=== PATIENT | female | born 1970 | race Caucasian/White ===

== ENCOUNTER 2016-11-30 12:41 | Emergency (ER) | payer OTHER ==
[~2016-11-30 12:41] MED LIST: ALDACTONE25 MG PO; CEFUROXIME AXE250 MG PO; CYCLOBENZAPRINE10 MG PO; GABAPENTIN800 MG PO; IBUPROFEN600 MG PO; LASIX40 MG PO; LISINOPRIL10 MG PO; OXYCODONE/ACETA1 TA1 PO; PAMELOR50 MG PO; PAMELOR75 MG PO; PERCOCET1 TA1 PO; PRILOSEC40 MG PO; SANTYL250 MG/GM TOP; SERTRALINE HCL100 MG PO
--- NOTE | 2016-11-30 14:47 | DIAGNOSTIC IMAGING REPORT ---
PROCEDURE: US VENOUS - LEFT EXT INDICATION: SWELLING TECHNIQUE: Color Doppler duplex imaging of the deep and superficial venous system without and with compression. COMPARISON: Compared to venous ultrasound left lower extremity on 01/28/2016. FINDINGS: Study is partially limited due to body habitus (calf vessels difficult to evaluate). Deep and superficial venous system of the left lower extremity is within normal limits. There is no evidence of deep vein thrombosis or superficial thrombophlebitis. IMPRESSION: 1. Partially limited study due to body habitus. 2. Negative venous ultrasound of the left lower extremity.
--- NOTE | 2016-11-30 17:26 | ED CLINICAL REPORT ---
Clinical Report - Physicians/Mid Levels [facility] [address] [place] [address] 11/30/2016 12:42 Patient: LIZA MARIA Time Seen: 1302; upon arrival, initial patient contact, initial documentation, patient care assumed. Arrived- By private vehicle. Historian- patient. HISTORY OF PRESENT ILLNESS Chief Complaint: LOWER EXTREMITY PAIN and SWELLING. Not relieved by anything- worsened by standing, walking and not relieved by anything. Severity is described as being moderate. The quality is noted to be "pain". No radiation. This started yesterday and is still present. It was abrupt in onset and has been constant. Symptoms located in the area of the left leg. The patient has had mild redness. No red streaking. She has had new onset of localized mild swelling of the left lower leg. She has had moderate difficulty walking. It has been associated with pain in the left leg. No bladder dysfunction, bowel dysfunction, sensory loss or motor loss. Patient denies an injury. Similar symptoms previously: Worse. ( had cellulitis in that leg before and has scar from infection). Recent medical care: Not recently seen/assessed. REVIEW OF SYSTEMS The patient has had mild difficulty breathing on exertion. She has had fever of 103 F. All systems otherwise negative, except as recorded above. PAST HISTORY See nurses notes. ( PROBLEMS: Cellulitis. Obesity. Sleep Apnea. Asthma. Hypertension. MRSA Infection. --13:06 Dianne Muhammad, R.N. ADDITIONAL SURGERIES: Carpal Tunnel Surgery. Knee Surgery. Nose. Shoulder Surgery. Wrist. --13:06 Dianne Muhammad, R.N.). SOCIAL HISTORY Former smoker. Occasional alcohol use. History of occasional drug use: marijuana. No recent travel. Is a local resident. FAMILY HISTORY Negative. ADDITIONAL NOTES The nursing notes have been reviewed with agreement regarding the chief complaint, HPI, ROS, PMH and patient medications and allergies. PHYSICAL EXAM Vital Signs: 11/30/2016 13:02 BP: 90/37. HR: 83. RR: 22. O2 saturation: 97%. Temp: 98.2 F. Pain level now: 7/10. Have been reviewed as abnormal and appear to be correct. Hypotensive. Heart rate normal. Respiratory rate normal. Temperature normal. Oxygen saturation normal. Appearance: Alert. Oriented X3. No acute distress. Eyes: Pupils equal, round and reactive to light. Eyes normal inspection. Neck: Normal inspection. Neck supple. CVS: Normal heart rate and rhythm. Heart sounds normal. Respiratory: No respiratory distress. Breath sounds normal. Abdomen: (morbid obese). Skin: Skin intact. Skin warm and dry. Normal skin color. Normal skin turgor. Extremities: Left leg: mild erythema, tenderness and swelling located in the anterior, posterior, medial and lateral aspect of lower leg. Neurovascular intact distally. (erythema, warm area to L lower leg, with some oozing clear fluid on lateral side near scar). No laceration, abrasion, ecchymosis, puncture wound or foreign body. No deformity. No limitation of weight bearing. Lower extremities do not exhibit normal ROM. Lower extremity edema present. Extremities otherwise negative. Gait: Gait not tested due to pain. Neuro: Oriented X 3. No motor deficit. No sensory deficit. LABS, X-RAYS, AND EKG Lower Extremity Sonography: Negative exam. Negative study. verbal report from [employer] no dvt. Interpretation time: 1400. Laboratory Tests: CBC w Diff: (JEFRY: 11/30/2016 13:45) ( MsgRcvd 11/30/2016 14:05) Final results Test Result Flag Units (Reference) WHITE BLOOD COUNT 11.4 K/uL (4.5-11.5) RED BLOOD COUNT 3.52 L M/uL (4.00-5.20) HEMOGLOBIN 9.6 L gm/dL (12.0-16.0) HEMATOCRIT 28.4 L % (36.0-46.0) MEAN CELL VOLUME 81 fL (80-100) MEAN CORPUSCULAR HGB 27 pg (26-34) MEAN CORPUSCULAR HGB CONC 34 g/dL (31-37) RED CELL DISTRIBUTION WIDTH 17.3 H % (11.6-14.8) PLATELET COUNT 97 L K/uL (150-400) NEUTROPHIL % 81.4 H % (50-75) LYMPH % 10.4 L % (25-40) MONO % 7.0 % (3-14) EOSINOPHIL % 1.1 % (0-4) BASOPHIL % 0.1 % (0-2) [id number]: (JEFRY: 11/30/2016 13:45) ( MsgRcvd 11/30/2016 14:22) Final results Test Result Flag Units (Reference) D-DIMER QUANTITATIVE 0.88 H ug/mLFEU (0.27-0.52) The primary value of this quantitative assay relates toits negative predictive value (i.e. exclusion) of pulmonaryembolism/deep vein thrombosis/DIC.Elevated levels of d-dimer may also occur with:, age, cancer, inflammation, liver disease,post-op, infection, hematoma, coronary disease, peripheralarteriopathy, bleeding disorders and thrombolytic treatment.Results should be correlated with other clinical andradiological data.Testing Methodology: Latex Immunoassay CMP: (JEFRY: 11/30/2016 13:45) ( MsgRcvd 11/30/2016 14:17) Final results Test Result Flag Units (Reference) GLUCOSE 133 H mg/dL (70-110) BUN 20 H mg/dL (7-18) CREATININE 1.8 H mg/dL (0.6-1.3) Estimated GFR 32.34 mL/min Estimated GFR- 39.19 mL/min Note: Persistent reduction over 3 months in eGFR<60 mL/min/1.73 m2 defines CKD. Patients with eGFR values>=60 mL/min/1.73 m2 may also have CKD if evidence ofpersistent proteinuria. Additional information may be foundat [email or web address].org. SODIUM 133 L mmol/L (136-145) POTASSIUM 3.4 L mmol/L (3.5-5.1) CHLORIDE 99 mmol/L (98-107) CARBON DIOXIDE 23 mmol/L (21-32) CALCIUM 8.4 L mg/dL (8.5-10.1) TOTAL PROTEIN 6.2 L g/dL (6.4-8.2) ALBUMIN 2.8 L g/dL (3.3-5.0) BILIRUBIN, TOTAL 0.9 mg/dL (0.0-1.0) ALKALINE PHOSPHATASE 106 U/L (46-116) AST (SGOT) 35 U/L (15-37) ALT (SGPT) 32 U/L (12-78) . PROGRESS AND PROCEDURES Course of Care: 1400. us results discussed, bp 65/28, pt talking, nad, resp even and unlabored, and stated it was normal when she was sick for her bp to drop and it tends to run low, has been trying to get it up to 100/60, and sometimes it reaches that but not most days 15:12 11/30/16. discussing bp issue with carmen Billingsley, pressure came up 110/?, then pt sat up and it dropped to 70/? 1600. walking in to discuss results and tx plan, pt laying down again, encouraged to sit and stay up and explained we were trying to assess her bp sitting and standing to make sure she doesn't drop too much where we would have to admit her to the hospital overnight, pt denies any bp s/s. 23:58. 11/30/2016 16:04 BP: 94/43. HR: 82. O2 saturation: 97%. Vital Signs: have been reviewed as abnormal and appear to be correct. Hypotensive. Heart rate normal. Respiratory rate normal. Oxygen saturation normal. Patient counseled in person regarding the patient's stable condition, test results and diagnosis. Differential Diagnosis: Other possible considerations: dvt, pe, cellulitis, abscess, pvd. Above considerations are based on history and physical exam. Differential diagnosis was discussed with patient. Disposition: Discharged home in good and improved condition (17:26). Condition: good and stable. CLINICAL IMPRESSION 11/30/2016 17:17 BP: 127/59. HR: 101. O2 saturation: 100%. Vital Signs: have been reviewed as normal and appear to be correct. Cellulitis of the left lower leg. INSTRUCTIONS Warnings: GENERAL WARNINGS: Return or contact your physician immediately if your condition worsens or changes unexpectedly, if not improving as expected, or if other problems arise. Specifically return if problem worsens. Prescription Medications: Cephalexin 500 mg: take 1 capsule orally every 8 hours for 10 days. No refill. Motrin 800 mg tablets: take 1 tablet orally every 8 hours as needed for pain. Dispense thirty (30). No refills. Substitution is permissible. Follow-up: Follow up with your doctor in two days even if well. Call for an appointment. Summary of care provided to patient. Understanding of the discharge instructions verbalized by patient. (Electronically signed by Lamar Lund A.R.N.P. 11/30/2016 23:58)
--- NOTE | 2016-11-30 17:26 | ED NURSING NOTES ---
Clinical Report - Nurses [facility] [address] [place] [address] 11/30/2016 12:42 [id number] Triage time 13:Nov 30 2016. Acuity: LEVEL 4. Chief Complaint: LEFT LOWER EXTREMITY PAIN, SWELLING, REDNESS and NUMBNESS. Location of symptoms- (Yesterday woke up and left leg was hurting, pain, numbness, swelling, and redness). 13:14 11/30/16. SEPSIS SCREEN: Sepsis Screen. Negative (no infection suspected/documented). BRANDO COMA SCORE: [place] Coma Scale: 15- eyes open spontaneously (4); best verbal response- oriented x 4 (5); best motor response- obeys commands (6). --13:14 Dianne Muhammad R.N. 13:02 11/30/16. BP: 90/37 (large adult cuff) taken on the left arm, while sitting. HR: 83 (regular). RR: 22 (regular). O2 saturation: 97% on room air. Temp: 98.2 F (oral). Pain level now: 10. --13:14 Dianne Muhammad R.N. Acuity: LEVEL 3. 13:16 11/30/16. --13:16 Dianne Muhammad R.N. Weight: 199.5 kg stated. Height/Length: 67 inches Per Patient. BMI: 69. --13:07 Dianne Muhammad R.N. Medications Cyclobenzaprine HCl Oral 10 mg, 2x a day. Gabapentin Oral 800mg, 3x a day. Ibuprofen Oral 600 mg, Q6H. Lasix Oral 40 mg, daily. Lisinopril Oral 40 mg, daily. Pamelor Oral 100mg, at bedtime. Percocet Oral 7.5/325 mg, as needed. PriLOSEC Oral 40 mg, 2x a day. Sertraline HCl Oral 100 mg, daily. Spironolactone Oral 25 mg, daily. --13:06 Muhammad, Dianne, R.N. Allergies Statins. Sulfa Antibiotics. --13:06 Dianne Muhammad R.N. History Arrived by private vehicle. Historian: patient. Accompanied by family. Primary physician (Christine Pereira). No injury occurred. This occurred today. She has had swelling, redness, a skin rash and trouble walking. 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 PAST MEDICAL HX: Hypertension. Infections. Last normal menstrual period now. SOCIAL HX: Smoker- current status unknown. Occasional alcohol use; consumes liquor. History of occasional drug use: marijuana. Recently used drugs days ago. No infectious disease exposure. ABUSE ASSESSMENT: No report of abuse. --13:14 Dianne Muhammad R.N. PROBLEMS: Cellulitis. Obesity. Sleep Apnea. Asthma. Hypertension. MRSA Infection. --13:06 Dianne Muhammad R.N. ADDITIONAL SURGERIES: Carpal Tunnel Surgery. Knee Surgery. Nose. Shoulder Surgery. Wrist. --13:06 Dianne Muhammad R.N. Interventions ID band on patient. To treatment room. --13:14 Dianne Muhammad R.N. PHYSICAL ASSESSMENT 13:15 11/30/16. To room via wheelchair. Patient gowned. GENERAL / NEURO / PSYCH: Appears anxious. She has had numbness. EXTREMITIES: Erythema on the extremities. Lower extremity edema. Left leg: tenderness, swelling, erythema and ecchymosis. SKIN: Extremity wound present. Skin is warm. --13:15 Dianne Muhammad R.N. NURSING PROGRESS NOTES 13:16 11/30/16. The plan of care for this patient has been created. Monitoring of patient in place. Patient gowned. Reassurance given. Two patient identifiers checked. Call light placed in reach. Side rails up x 2. Bed placed in lowest position. Brakes of bed on. Patient ready for evaluation- chart flagged and LOTTERIES AGENT notified. --13:16 Dianne Muhammad R.N. 13:23 11/30/2016 Site #1 started via IV in the right hand with an 18g angiocath, with aseptic technique and good blood return; one attempt. Saline lock flushed with 10 mL saline. --13:23 Dianne Muhammad R.N. 13:35 11/30/16. ( Patients blood pressures have been very low, only placed on lower arms with small cuff and BPS have been 75/34, 65/35, and with manual cuff 72/42). --13:35 Dianne Muhammad R.N. 13:40 11/30/2016 Started bag #1 1000 mL IV Fluids IV NS (Saline); at 1000 mL/hr over 1 hour(s) via site #1 via dial-a-flow. Allergies verified and confirmed 5 rights. IV patency established. IV site checked: no pain, redness, or swelling. IV flushed thoroughly pre- and post-medication administration. --13:40 Dianne Muhammad R.N. 13:46 11/30/2016 Toradol IVP 30 mg given over 1 minute(s) via site #1. Allergies verified and confirmed 5 rights. IV patency established. IV site checked: no pain, redness, or swelling. IV flushed thoroughly pre- and post-medication administration. IVP given by RN. --13:46 Dianne Muhammad R.N. 14:49 11/30/2016 Toradol IVP Response: no adverse reaction pain is improving. Symptoms have improved the patient feels better. --14:50 Dianne Muhammad R.N. 14:52 11/30/16. ( patient feeling better from Toradol and BP has increased some). --14:52 Dianne Muhammad R.N. 14:50 11/30/16. BP: 107/64 (small adult cuff) taken on the left arm, while sitting. HR: 83. RR: 20 (regular). O2 saturation: 97% on room air. Pain level now: 5/10. Additional comments: at wrist. --14:52 Dianne Muhammad R.N. 14:56 11/30/2016 IV Fluids IV NS Discontinued: bag #1 completed. Total amount infused: 1000 mL. IV patency established. IV site checked: no pain, redness, or swelling. IV flushed thoroughly. --14:56 Dianne Muhammad R.N. 13:30 11/30/16. BP: 67/28. HR: 96. --15:37 Dianne Muhammad R.N. 14:00 11/30/16. BP: 97/45. HR: 52. O2 saturation: 96%. --15:38 Dianne Muhammad R.N. 14:30 11/30/16. BP: 90/41. HR: 53. O2 saturation: 96%. --15:38 Dianne Muhammad R.N. 15:00 11/30/16. BP: 86/62. HR: 68. O2 saturation: 97%. --15:39 Dianne Muhammad R.N. 16:04 11/30/16. BP: 94/43 (small adult cuff) taken on the left arm, while sitting. HR: 82. O2 saturation: 97% on room air. Additional comments: forearm. --16:05 Dianne Muhammad R.N. 16:32 11/30/2016 Started 1 gm of Ceftriaxone IVPB in bag #1 50 mL; at 100 mL/hr over 30 minute(s) via site #1 via IV pump. Allergies verified and confirmed 5 rights. IV patency established. IV site checked: no pain, redness, or swelling. IV flushed thoroughly pre- and post-medication administration. --16:32 Dianne Muhammad R.N. 16:47 11/30/16. BP: 112/64 (small adult cuff) taken on the right arm, while sitting. HR: 93. O2 saturation: 100% on room air. Additional comments: forearm. --16:47 Dianne Muhammad R.N. 17:05 11/30/2016 Ceftriaxone IVPB Discontinued: bag #2 completed. Total amount infused: 50 mL. IV patency established. IV site checked: no pain, redness, or swelling. IV flushed thoroughly. --17:05 Dianne Muhammad R.N. 17:19 11/30/16. ( Ceftriaxone is completed, patient up to use restroom and feeling good. She feels better sitting in chair). --17:19 Dianne Muhammad R.N. 17:17 11/30/16. BP: 127/59 (small adult cuff) taken on the left arm, while sitting. HR: 101. O2 saturation: 100% on room air. Additional comments: forearm. --17:19 Dianne Muhammad R.N. DISPOSITION / DISCHARGE 17:29 11/30/2016 Site #1 removed upon discharge. Bandaid applied. --17:39 Dianne Muhammad R.N. Departure time: 17:40 Nov 30 2016. Condition at departure: improved. No learning barriers present. Discharge instructions provided and reviewed with the patient. Reviewed medication(s) side effects, precautions and dosing information. Prescription(s) given to the patient. Activity restrictions (minimal use of injured extremity) reviewed. Patient verbalized understanding. Written instructions provided in Eritrean. The patient was discharged by the nurse practitioner. She was discharged home and accompanied by family. She left the Emergency Department ambulatory and via private vehicle. Family member driving. --17:41 Dianne Muhammad R.N. 17:39 11/30/16. BP: 115/99 (small adult cuff) taken on the left arm, while sitting. HR: 94. RR: 22. O2 saturation: 99% on room air. Temp: 98.2 F (oral). Pain level now: 0/10. Additional comments: forearm. --17:41 Dianne Muhammad R.N. Locked/Released at 11/30/2016 17:45 by Dianne Muhammad R.N.
--- NOTE | 2016-11-30 17:26 | ED ORDER SUMMARY ---
..... Patient: LIZA MARIA [facility] VisitID: [id number] [place] [address] 46y, F Registration Date/Time: 11/30/2016 ORDER SHEET Weight: 199.5 kg (stated) Allergies: Statins, Sulfa Antibiotics GENERAL ORDERS: US Venous Left Urgent (13:12 11/30/2016 HBivens A.R.N.P.) (Ack 13:14 KHoerner) (14:52 JSanders R.N.) CBC w Diff Urgent (13:12 11/30/2016 HBivens A.R.N.P.) (Ack 13:14 KHoerner) (13:46 JSanders R.N.) CMP Urgent (13:12 11/30/2016 HBivens A.R.N.P.) (Ack 13:14 KHoerner) (13:46 JSanders R.N.) D-Dimer Urgent (13:12 11/30/2016 HBivens A.R.N.P.) (Ack 13:14 KHoerner) (13:46 JSanders R.N.) MEDICATION ORDERS: IV FLUIDS: Toradol IV 30 mg (NOW) (13:12 11/30/2016 HBivens A.R.N.P.) (13:46 JSanders R.N.) IV Saline Lock (13:12 11/30/2016 HBivens A.R.N.P.) (13:23 JSanders R.N.) IV NS : initial bolus 1000 mL (1000 mL/hr), then none - (NOW) (13:38 11/30/2016 HBivens A.R.N.P.) (13:40 JSanders R.N.) Ceftriaxone IV 1 gm/50mL (NOW) (16:10 11/30/2016 HBivens A.R.N.P.) (16:32 JSanders R.N.) ORDER SHEET NOTES: [Electronically signed by Dianne Muhammad R.N. (17:45 11/30/2016)] [Electronically signed by Lamar LundR.N.PTwin (23:58 11/30/2016)] [Electronically locked/signed by Dianne Muhammad R.N. (17:45 11/30/2016)]
--- NOTE | 2016-11-30 17:26 | ED ORDER SUMMARY ---
..... Patient: LIZA MARIA OrderSheet [facility] VisitID: [id number] [place] [address] 46y, F Registration Date/Time: 11/30/2016 ORDER SHEET Weight: 199.5 kg (stated) Allergies: Statins, Sulfa Antibiotics GENERAL ORDERS: US Venous Left Urgent (13:12 11/30/2016 HBivens A.R.N.P.) (Ack 13:14 KHoerner) (14:52 JSanders R.N.) CBC w Diff Urgent (13:12 11/30/2016 HBivens A.R.N.P.) (Ack 13:14 KHoerner) (13:46 JSanders R.N.) CMP Urgent (13:12 11/30/2016 HBivens A.R.N.P.) (Ack 13:14 KHoerner) (13:46 JSanders R.N.) D-Dimer Urgent (13:12 11/30/2016 HBivens A.R.N.P.) (Ack 13:14 KHoerner) (13:46 JSanders R.N.) MEDICATION ORDERS: IV FLUIDS: Toradol IV 30 mg (NOW) (13:12 11/30/2016 HBivens A.R.N.P.) (13:46 JSanders R.N.) IV Saline Lock (13:12 11/30/2016 HBivens A.R.N.P.) (13:23 JSanders R.N.) IV NS : initial bolus 1000 mL (1000 mL/hr), then none - (NOW) (13:38 11/30/2016 HBivens A.R.N.P.) (13:40 JSanders R.N.) Ceftriaxone IV 1 gm/50mL (NOW) (16:10 11/30/2016 HBivens A.R.N.P.) (16:32 JSanders R.N.) ORDER SHEET NOTES: [Electronically signed by Dianne Muhammad R.N. (17:45 11/30/2016)] [Electronically signed by Lamar LundR.N.PTwin (23:58 11/30/2016)] [Electronically locked/signed by Dianne Muhammad R.N. (17:45 11/30/2016)]
--- NOTE | 2016-11-30 23:58 | ED MAR SUMMARY ---
..... Medication Administration Record [facility] [address] [place] [address] Patient: LIZA MARIA Visit ID: [id number] 46y, F Weight: 199.5 kg Height/Length: 67 in BMI: 69 ALLERGIES: Statins, Sulfa Antibiotics Start 13:40 11/30/2016 Dianne Muhammad R.N., Stop 14:56 11/30/2016 Dianne Muhammad R.N. Medication Administered: IV NS (SALINE), Dose: IV Fluids over 1 hour(s), Rate: 1000 mL/hr, Dispensed: 1000 mL bag, Site: #1 right hand. Medication Ordered: IV NS : initial bolus 1000 mL (1000 mL/hr), then none - (NOW). Given 13:46 11/30/2016 Dianne Muhammad R.N. Medication Administered: TORADOL [IVP], Dose: 30 mg IVP over 1 minute(s), Site: #1 right hand. Medication Ordered: Toradol IV 30 mg (NOW). Start 16:32 11/30/2016 Dianne Muhammad R.N., Stop 17:05 11/30/2016 Dianne Muhammad R.N. Medication Administered: CEFTRIAXONE [IVPB], Dose: 1 gm IVPB over 30 minute(s), Rate: 100 mL/hr, Dispensed: 50 mL bag, Site: #1 right hand. Medication Ordered: Ceftriaxone IV 1 gm/50mL (NOW).
--- NOTE | 2016-11-30 23:58 | ED MED RECONCILIATION SUMMARY ---
Patient: LIZA MARIA Medication Reconciliation Report [facility] VisitID: [id number] [address] [place] [address] 46y, F Registration Date/Time: 11/30/2016 Weight: 199.5 kg Height/Length: 67 in. BMI: 69.0 ALLERGIES: Statins, Sulfa Antibiotics The patient's Home Medications are listed below: THE FOLLOWING MEDICATIONS NEED TO BE RECONCILED: Cyclobenzaprine HCl Oral 10 mg, 2x a day Gabapentin Oral 800mg, 3x a day Ibuprofen Oral 600 mg, Q6H Lasix Oral 40 mg, daily Lisinopril Oral 40 mg, daily Pamelor Oral 100mg, at bedtime Percocet Oral 7.5/325 mg PriLOSEC Oral 40 mg, 2x a day Sertraline HCl Oral 100 mg, daily Spironolactone Oral 25 mg, daily The source(s) of the original Home Medication information: Not obtained. The following Medications were given to the patient in the Emergency Department: IV NS IV Fluids bolus 0, then 1000 mL/hr, administered: 11/30/2016 1:40:00 PM Toradol [IVP] IVP 30 mg, administered: 11/30/2016 1:46:00 PM Ceftriaxone [IVPB] IVPB bolus 0, then 1 gm 100 mL/hr, administered: 11/30/2016 4:32:00 PM The following Medications were prescribed to the patient: Cephalexin 500 mg: take 1 capsule orally every 8 hours for 10 days. No refill. -- Lamar Lund A.R.NTwinPTwin Motrin 800 mg tablets: take 1 tablet orally every 8 hours as needed for pain. Dispense thirty (30). No refills. Substitution is permissible. -- Lamar Lund A.R.NTwinPTwin
--- NOTE | 2016-11-30 23:58 | ED DISCHARGE INSTRUCTIONS ---
Patient: LIZA MARIA General Instructions [facility] VisitID: [id number] [place] [address] 46y, F Registration Date/Time: 11/30/2016 11/30/2016 17:17 BP: 127/59. HR: 101. O2 saturation: 100%. Vital Signs: have been reviewed as normal and appear to be correct. Cellulitis of the left lower leg. INSTRUCTIONS Warnings: GENERAL WARNINGS: Return or contact your physician immediately if your condition worsens or changes unexpectedly, if not improving as expected, or if other problems arise. Specifically return if problem worsens. Prescription Medications: Cephalexin 500 mg: take 1 capsule orally every 8 hours for 10 days. No refill. Motrin 800 mg tablets: take 1 tablet orally every 8 hours as needed for pain. Dispense thirty (30). No refills. Substitution is permissible. Follow-up: Follow up with your doctor in two days even if well. Call for an appointment. Summary of care provided to patient. Understanding of the discharge instructions verbalized by patient. ADDITIONAL INFORMATION Cellulitis You have an infection of the skin known as cellulitis. This usually starts with a scrape, cut, insect bite, blister or other opening in the skin which becomes infected. This is a serious condition. It must be watched closely to be sure the infection is not spreading. With antibiotic treatment, the size of the red area will gradually shrink in size until the skin returns to normal. This will take 7-10 days. The red area should never increase in size once the antibiotic medicine has been started. Occasionally, an infection will be resistant to one antibiotic and another one will have to be used. Home Care: 1) Limit the use of the affected part, since excess movement can cause the infection to spread. 2) If the infection is on your leg, walk as little as possible during the first few days of the treatment. Keep your leg elevated while sitting. This will reduce swelling. 3) Take all of the antibiotic medicine exactly as directed until it is gone. Be careful not to miss any doses, especially during the first seven days. Follow Up with your doctor or this facility as directed. Check the infected area daily for the warning signs listed below. Get Prompt Medical Attention if any of the following occur: -- Spreading area of redness -- Increasing swelling or pain -- Appearance of pus or drainage -- Fever over 100.4 F (38.0 C) oral, or over 101.4 F (38.6 C) rectal, after two days on antibiotics Staph Infection (MRSA) "Staph" is the short name for the common bacteria called "staphylococcus aureus". Staph bacteria are often present on the skin without causing an infection. If it gets under the skin an infection occurs. This causes redness, tenderness, swelling and sometimes fluid drainage. MRSA stands for "Methicillin-Resistant Staph Aureus". Unlike a common staph infection, MRSA bacteria are resistant to the usual antibiotics and harder to treat. Also, MRSA is more toxic than common staph bacteria. It can spread quickly throughout the body and cause a life-threatening illness. MRSA is spread to others by direct physical contact with the bacteria. MRSA can also be transmitted from items contaminated by a person who has the bacteria, such as bandages, towels, bed sheets, or sports equipment. It is not spread through the air. Once you have a MRSA skin infection, you are at risk of having it recur in the future. If MRSA infection is suspected, the doctor may take a wound culture to confirm the diagnosis. Any abscess will be drained. One or sometimes two antibiotics that work against MRSA will be prescribed. Home Care: 1) Take any antibiotics prescribed exactly as directed until they are gone. 2) Follow the same washing procedures as outlined for Household Members below. 3) Keep draining wounds covered with clean, dry bandages. Change dressings as they become soiled. 4) You and those in contact with you should wash their hands frequently with soap and warm water or use an alcohol-based hand retail loan originator. Do this after each time you change the bandage or touch the wound. 5) Avoid sharing personal items such as towels, washcloths, razors, clothing, or uniforms. Wash soiled sheets, towels or clothes in hot water with laundry detergent. Use an automatic clothes dryer set on high to kill any remaining bacteria. 6) Remove any artificial nails and nail nicaraguan. 7) If you use a gym, wipe down equipment before and after each use. Treatment Of Household Members If you have been diagnosed with possible MRSA infection, those living with you are at higher risk of carrying the bacteria on their skin or in their nose, even if there is no sign of infection. Bacteria must be removed from the skin of all household members (including you) at the same time, so that it is not passed back and forth. Advise them to remove the bacteria as follows: Wash your whole body (scalp to toes) daily for five days with Hibiclens (chlorhexidine). Scrub fingernails with a brush for one minute twice a day. If any skin infections are present (boils, abscess, infected cut) these must be treated by a doctor. Washing alone will not treat a MRSA infection. Clean counter tops and children's toys; do not share personal items such as toothbrush and razors. It is okay to share glasses, plates, utensils. If antibiotic ointment was prescribed use it as directed. Follow Up with your doctor or as advised by our staff. If a wound culture was taken, call as directed in two days to obtain the results. If the culture result is positive for MRSA, tell medical personnel in the future that you were treated for this type of infection. Get Prompt Medical Attention if any of the following occur: -- Increasing redness, swelling or pain -- Red streaks in the skin around the wound -- Weakness or dizziness -- New appearance of pus or drainage from the wound -- New fever over 100.4 F (38.0 C) Cephalexin Monohydrate Oral tablet What is this medicine? CEPHALEXIN (sef a YARA in) is a cephalosporin antibiotic. It is used to treat certain kinds of bacterial infections It will not work for colds, flu, or other viral infections. How should I use this medicine? Take this medicine by mouth with a full glass of water. Follow the directions on the prescription label. This medicine can be taken with or without food. Take your medicine at regular intervals. Do not take your medicine more often than directed. Take all of your medicine as directed even if you think you are better. Do not skip doses or stop your medicine early. Talk to your hammersmith helper regarding the use of this medicine in children. While this drug may be prescribed for selected conditions, precautions do apply. What side effects may I notice from receiving this medicine? Side effects that you should report to your doctor or health women's health care nurse practitioner as soon as possible: allergic reactions like skin rash, itching or hives, swelling of the face, lips, or tongue breathing problems pain or trouble passing urine redness, blistering, peeling or loosening of the skin, including inside the mouth severe or watery diarrhea unusually weak or tired yellowing of the eyes, skin Side effects that usually do not require medical attention (report to your doctor or health women's health care nurse practitioner if they continue or are bothersome): gas or heartburn genital or anal irritation headache joint or muscle pain nausea, vomiting What may interact with this medicine? probenecid some other antibiotics What if I miss a dose? If you miss a dose, take it as soon as you can. If it is almost time for your next dose, take only that dose. Do not take double or extra doses. There should be at least 4 to 6 hours between doses. Where should I keep my medicine? Keep out of the reach of children. Store at room temperature between 59 and 86 degrees F (15 and 30 degrees C). Throw away any unused medicine after the expiration date. What should I tell my health care provider before I take this medicine? They need to know if you have any of these conditions: kidney disease stomach or intestine problems, especially colitis an unusual or allergic reaction to cephalexin, other cephalosporins, penicillins, other antibiotics, medicines, foods, dyes or preservatives or trying to get breast-feeding What should I watch for while using this medicine? Tell your doctor or health women's health care nurse practitioner if your symptoms do not begin to improve in a few days. Do not treat diarrhea with over the counter products. Contact your doctor if you have diarrhea that lasts more than 2 days or if it is severe and watery. If you have diabetes, you may get a false-positive result for sugar in your urine. Check with your doctor or health women's health care nurse practitioner. Ibuprofen Oral tablet What is this medicine? IBUPROFEN (eye BYOO proe fen) is a non-steroidal anti-inflammatory drug (NSAID). It is used for dental pain, fever, headaches or migraines, osteoarthritis, rheumatoid arthritis, or painful monthly periods. It can also relieve minor aches and pains caused by a cold, flu, or sore throat. How should I use this medicine? Take this medicine by mouth with a glass of water. Follow the directions on the prescription label. Take this medicine with food if your stomach gets upset. Try to not lie down for at least 10 minutes after you take the medicine. Take your medicine at regular intervals. Do not take your medicine more often than directed. A special MedGuide will be given to you by the pharmacist with each prescription and refill. Be sure to read this information carefully each time. Talk to your hammersmith helper regarding the use of this medicine in children. Special care may be needed. What side effects may I notice from receiving this medicine? Side effects that you should report to your doctor or health women's health care nurse practitioner as soon as possible: allergic reactions like skin rash, itching or hives, swelling of the face, lips, or tongue black or bloody stools, blood in the urine or in vomit breathing problems changes in vision chest pain general ill feeling or flu-like symptoms nausea or vomiting redness, blistering, peeling or loosening of the skin, including inside the mouth slurred speech or weakness on one side of the body stomach pain unexplained weight gain or swelling unusually weak or tired yellowing of eyes or skin Side effects that usually do not require medical attention (report to your doctor or health women's health care nurse practitioner if they continue or are bothersome): constipation or diarrhea dizziness gas or heartburn stomach upset What may interact with this medicine? Do not take this medicine with any of the following medications: cidofovir ketorolac methotrexate pemetrexed This medicine may also interact with the following medications: alcohol aspirin diuretics lithium other drugs for inflammation like prednisone warfarin What if I miss a dose? If you miss a dose, take it as soon as you can. If it is almost time for your next dose, take only that dose. Do not take double or extra doses. Where should I keep my medicine? Keep out of the reach of children. Store at room temperature between 15 and 30 degrees C (59 and 86 degrees F). Keep container tightly closed. Throw away any unused medicine after the expiration date. What should I tell my health care provider before I take this medicine? They need to know if you have any of these conditions: asthma cigarette smoker drink more than 3 alcohol containing drinks a day heart disease or circulation problems such as heart failure or leg edema (fluid retention) high blood pressure kidney disease liver disease stomach bleeding or ulcers an unusual or allergic reaction to ibuprofen, aspirin, other NSAIDS, other medicines, foods, dyes, or preservatives or trying to get breast-feeding What should I watch for while using this medicine? Tell your doctor or healthcare professional if your symptoms do not start to get better or if they get worse. This medicine does not prevent heart attack or stroke. In fact, this medicine may increase the chance of a heart attack or stroke. The chance may increase with longer use of this medicine and in people who have heart disease. If you take aspirin to prevent heart attack or stroke, talk with your doctor or health women's health care nurse practitioner. Do not take other medicines that contain aspirin, ibuprofen, or naproxen with this medicine. Side effects such as stomach upset, nausea, or ulcers may be more likely to occur. Many medicines available without a prescription should not be taken with this medicine. This medicine can cause ulcers and bleeding in the stomach and intestines at any time during treatment. Ulcers and bleeding can happen without warning symptoms and can cause . To reduce your risk, do not smoke cigarettes or drink alcohol while you are taking this medicine. You may get drowsy or dizzy. Do not drive, use machinery, or do anything that needs mental alertness until you know how this medicine affects you. Do not stand or sit up quickly, especially if you are an older patient. This reduces the risk of dizzy or fainting spells. This medicine can cause you to bleed more easily. Try to avoid damage to your teeth and gums when you brush or floss your teeth. You have been given the following additional information: Cellulitis MRSA Skin Infection, Suspected Or Confirmed Cephalexin Monohydrate Oral tablet Ibuprofen Oral tablet (Electronically signed by Lamar Lund A.R.N.P. 11/30/2016 23:58)
--- NOTE | 2016-11-30 23:58 | ED MAR SUMMARY ---
..... Medication Administration Record Merged With [facility] [address] [place] [address] Patient: LIZA MARIA Visit ID: [id number] 46y, F Weight: 199.5 kg Height/Length: 67 in BMI: 69 ALLERGIES: Statins, Sulfa Antibiotics Start 13:40 11/30/2016 Dianne Muhammad R.N., Stop 14:56 11/30/2016 Dianne Muhammad R.N. Medication Administered: IV NS (SALINE), Dose: IV Fluids over 1 hour(s), Rate: 1000 mL/hr, Dispensed: 1000 mL bag, Site: #1 right hand. Medication Ordered: IV NS : initial bolus 1000 mL (1000 mL/hr), then none - (NOW). Given 13:46 11/30/2016 Dianne Muhammad R.N. Medication Administered: TORADOL [IVP], Dose: 30 mg IVP over 1 minute(s), Site: #1 right hand. Medication Ordered: Toradol IV 30 mg (NOW). Start 16:32 11/30/2016 Dianne Muhammad R.N., Stop 17:05 11/30/2016 Dianne Muhammad R.N. Medication Administered: CEFTRIAXONE [IVPB], Dose: 1 gm IVPB over 30 minute(s), Rate: 100 mL/hr, Dispensed: 50 mL bag, Site: #1 right hand. Medication Ordered: Ceftriaxone IV 1 gm/50mL (NOW).
--- NOTE | 2016-11-30 23:58 | ED MED RECONCILIATION SUMMARY ---
Patient: LIZA MARIA Medication Reconciliation Report [facility] VisitID: [id number] [address] [place] [address] 46y, F Registration Date/Time: 11/30/2016 Weight: 199.5 kg Height/Length: 67 in. BMI: 69.0 ALLERGIES: Statins, Sulfa Antibiotics The patient's Home Medications are listed below: THE FOLLOWING MEDICATIONS NEED TO BE RECONCILED: Cyclobenzaprine HCl Oral 10 mg, 2x a day Gabapentin Oral 800mg, 3x a day Ibuprofen Oral 600 mg, Q6H Lasix Oral 40 mg, daily Lisinopril Oral 40 mg, daily Pamelor Oral 100mg, at bedtime Percocet Oral 7.5/325 mg PriLOSEC Oral 40 mg, 2x a day Sertraline HCl Oral 100 mg, daily Spironolactone Oral 25 mg, daily The source(s) of the original Home Medication information: Not obtained. The following Medications were given to the patient in the Emergency Department: IV NS IV Fluids bolus 0, then 1000 mL/hr, administered: 11/30/2016 1:40:00 PM Toradol [IVP] IVP 30 mg, administered: 11/30/2016 1:46:00 PM Ceftriaxone [IVPB] IVPB bolus 0, then 1 gm 100 mL/hr, administered: 11/30/2016 4:32:00 PM The following Medications were prescribed to the patient: Cephalexin 500 mg: take 1 capsule orally every 8 hours for 10 days. No refill. -- Lamar Lund A.R.NTwinPTwin Motrin 800 mg tablets: take 1 tablet orally every 8 hours as needed for pain. Dispense thirty (30). No refills. Substitution is permissible. -- Lamar Lund A.R.NTwinPTwin
== END 2016-11-30 17:40 | disposition home or self-care (01) ==
LOC: ED SRH 12:41
DX: L03.116 Cellulitis of left lower limb (principal); I10 Essential (primary) hypertension; Z87.891 Personal history of nicotine dependence; Z79.899 Other long term (current) drug therapy; Z88.2 Allergy status to sulfonamides; Z88.8 Allergy status to other drugs, medicaments and biological substances

== ENCOUNTER 2017-01-05 13:44 | Outpatient (CLI) | payer OTHER ==
--- NOTE | 2017-01-05 15:38 | DIAGNOSTIC IMAGING REPORT ---
PROCEDURE: US ART LOWER EXT WITH MADELYN-B/L INDICATION: NON HEALING WOUNDS TECHNIQUE: Preexercise ABIs were performed. The patient was unable to exercise due to obesity and limited mobility. Color Doppler duplex imaging of the lower extremities was obtained. COMPARISON: None. FINDINGS: RIGHT LOWER EXTREMITY: ABIs: Resting ABIs: Posterior tibial and dorsalis pedis both 1.2. VESSELS: Minimal plaque formation. Normal triphasic wave form throughout the extremity except for biphasic wave form of the dorsalis pedis artery. RIGHT LOWER EXTREMITY PEAK SYSTOLIC VELOCITIES: External iliac: 186 cm/second. Common femoral artery: 139 cm/second. Profunda femoral artery: 80 cm/second. Proximal superficial femoral artery: 96 cm/second. Mid superficial femoral artery: 97 cm/second. Distal superficial femoral artery: 74 cm/second. Popliteal artery: 82 cm/second. Proximal posterior tibial artery: 61 cm/second. Proximal anterior tibial artery: 91 cm/second. Distal posterior tibial artery: 71 cm/second. Dorsalis pedis artery: 66 cm/second. LEFT LOWER EXTREMITY: ABIs: Resting ABIs: Posterior tibial 1.3 and dorsalis pedis 1.2. VESSELS: Minimal plaque formation. Monophasic wave form of the external iliac artery with triphasic wave form distally to the ankle. LEFT LOWER EXTREMITY PEAK SYSTOLIC VELOCITIES: External iliac: 232 cm/second. Common femoral artery: 134 cm/second. Profunda femoral artery: 120 cm/second. Proximal superficial femoral artery: 123 cm/second. Mid superficial femoral artery: 81 cm/second. Distal superficial femoral artery: 120 cm/second. Popliteal artery: 102 cm/second. Proximal posterior tibial artery: 78 cm/second. Proximal anterior tibial artery: 82 cm/second. Distal posterior tibial artery: 73 cm/second. Dorsalis pedis artery: 97 cm/second. IMPRESSION: 1. Left lower extremity: No evidence of resting arterial insufficiency. External iliac artery monophasic wave form with elevated velocity suggestive of inflow disease. Otherwise minimal plaque formation. 2. Right lower extremity: No evidence of resting arterial insufficiency . Minimal plaque formation with no evidence of high-grade stenosis.
== END 2017-01-05 23:00 ==
LOC: US SRH 13:44
DX: L97.929 Non-pressure chronic ulcer of unspecified part of left lower leg with unspecified severity (principal); L97.919 Non-pressure chronic ulcer of unspecified part of right lower leg with unspecified severity

== ENCOUNTER 2017-01-09 22:21 | Emergency (ER) | payer OTHER ==
--- NOTE | 2017-01-09 23:52 | ED NURSING NOTES ---
Clinical Report - Nurses [facility] [address] [place] [address] 01/09/2017 22:21 [id number] Triage time 22:30. Chief Complaint: LEFT LOWER EXTREMITY PAIN, SWELLING and REDNESS. Location of symptoms- (outer calf wound). --22:37 Deya Ann R.N. 22:30 01/09/17. BP: 106/39 (large adult cuff) taken on the left arm, while lying. HR: 89 (regular and normal rate). RR: 20 (regular and unlabored). O2 saturation: 100% on room air. Temp: 97.8 F (oral). Pain level now: 03/23. --22:37 Deya Ann R.N. Weight: 185.9 kg stated. Height/Length: 67 inches Per Patient. BMI: 64.2. --22:36 Deya Ann R.N. Medications Cyclobenzaprine HCl Oral 10 mg, 2x a day. Gabapentin Oral 800mg, 3x a day. Lasix Oral 40 mg, daily. Lisinopril Oral 40 mg, daily. Pamelor Oral 100mg, at bedtime. Percocet Oral 7.5/325 mg, as needed. PriLOSEC Oral 40 mg, 2x a day. Sertraline HCl Oral 100 mg, daily. Spironolactone Oral 25 mg, daily. --22:32 Deya Ann R.N. Clindamycin HCl Oral (Capsule 300 mg) 1 capsule, 3x a day. --22:32 Deya Ann R.N. Allergies Statins. --22:32 Deya Ann R.N. History Arrived by private vehicle. Historian: patient. Accompanied by family. Primary physician (chon). This occurred (ongoing,). She has had swelling to left lower leg since initial complaint. She has had redness. PAST MEDICAL HX: Tetanus status: up-to-date. Last normal menstrual period was 3 weeks ago. SOCIAL HX: Smoker- current status unknown. Occasional alcohol use. History of drug use: marijuana. (3 months ago). SELF HARM ASSESSMENT: A self harm assessment was performed. The patient answered "no" to the question "Have you recently felt down, depressed, or hopeless?", "Have you noticed less interest or pleasure in doing things?", "Do you have thoughts of harming or killing yourself?", "Are you here because you tried to hurt yourself?", "Have you ever tried to hurt yourself before today?", "Have you recently had thoughts about harming or killing others?" and "Do you have any dangerous items in your possession?". --22:37 Deya Ann R.N. PROBLEMS: Fibromyalgia [Active]. --22:33 Deya Ann R.N. Infections. Cellulitis. Obesity. Sleep Apnea. Asthma. Hypertension. MRSA Infection. --22:33 Deya Ann R.N. ADDITIONAL SURGERIES: Carpal Tunnel Surgery. Knee Surgery. Nose. Shoulder Surgery. Wrist. --22:33 Deya Ann R.N. Interventions ID band on patient. --22:37 Deya Ann R.N. PHYSICAL ASSESSMENT To room via wheelchair. GENERAL / NEURO / PSYCH: Oriented X 4. Alert. Appears in no acute distress. EXTREMITIES: Left leg: tenderness and erythema of the lateral aspect of leg (wound since beginning of november). SKIN: Skin breakdown noted on left calf; present on arrival. --22:39 Deya Ann R.N. NURSING PROGRESS NOTES Two patient identifiers checked. Call light placed in reach. Side rails up x 1. Bed placed in lowest position. Brakes of bed on. --22:39 Deya Ann R.N. Patient ready for evaluation- chart flagged. --22:39 Deya Ann R.N. 23:04 01/09/2017 Site #1 started via IV in the left hand with an 22g angiocath, with aseptic technique and good blood return; one attempt. Blood drawn: rainbow set. Labeled in the presence of the patient. Saline lock flushed with 10 mL saline. --23:09 Deya Ann R.N. Two patient identifiers checked. Call light placed in reach. Side rails up x 1. Bed placed in lowest position. Brakes of bed on. --23:09 Deya Ann R.N. DISPOSITION / DISCHARGE 23:55 01/09/2017 Site #1 removed upon discharge. Catheter intact. Manual pressure and bandage applied. --00:06 Deya Ann R.N. Departure time: 2355. Condition at departure: unchanged and stable. No learning barriers present. Discharge instructions provided and reviewed with the patient. Follow up contact number [phone]. Patient verbalized understanding. Written instructions provided in Togolese. The patient was discharged home and accompanied by family. She left the Emergency Department in a wheelchair and via private vehicle. Family member driving. --00:10 Deya Ann R.N. 23:55 01/09/17. BP: 85/35 (regular adult cuff) taken on the left arm, while lying. ED physician notified. HR: 75 (regular, normal rate and strong). RR: 18 (regular, unlabored and normal). O2 saturation: 100% on room air. Temp: deferred. Pain level now: 11/21. --00:10 Deya Ann R.N. Locked/Released at 01/10/2017 0:11 by Deya Ann R.N.
--- NOTE | 2017-01-09 23:52 | ED CLINICAL REPORT ---
Clinical Report - Physicians/Mid Levels [facility] [address], [place] [address] 01/09/2017 22:21 Patient: LIZA MARIA Time Seen: 22:47. Arrived- By private vehicle. Historian- patient. HISTORY OF PRESENT ILLNESS Chief Complaint: ; ;(LLE WOUND IS "WORSE"). The quality is noted to be "pain". This started several days ago; Today the patient was told to come to the ED by her home health wound care nurse because there was a foul odor when the nurse removed the wound vac. The patient noted increased tenderness over the last several days. Symptoms located in the area of the left leg. The patient has had redness and swelling. No difficulty walking. No bladder dysfunction, bowel dysfunction, sensory loss or motor loss. Recent medical care: ( IMPRESSION: 1. Left lower extremity: No evidence of resting arterial insufficiency. External iliac artery monophasic wave form with elevated velocity suggestive of inflow disease. Otherwise minimal plaque formation. 2. Right lower extremity: No evidence of resting arterial insufficiency . Minimal plaque formation with no evidence of high-grade stenosis. Dictated by: OLAF ALCANTARA MD D: YESENIA;01/05/17 1538 <Electronically signed by OLAF ALCANTARA MD in OV>). REVIEW OF SYSTEMS No chills, fever, chest pain or difficulty breathing. PAST HISTORY ( Wound Care Center [facility] Pt has a chronic non healing LLE wound Morbid obesity >400 lbs PROBLEMS: Fibromyalgia [Active]. Infections. Cellulitis. Obesity. Sleep Apnea. Asthma. Hypertension. MRSA Infection. ADDITIONAL SURGERIES: Carpal Tunnel Surgery. Knee Surgery. Nose. Shoulder Surgery. Wrist). SOCIAL HISTORY Former smoker. ADDITIONAL NOTES The nursing notes have been reviewed. PHYSICAL EXAM Vital Signs: 01/09/2017 23:55 BP: 85/35. HR: 75. RR: 18. O2 saturation: 100%. Pain level now: 11/21. 01/09/2017 22:30 BP: 106/39. HR: 89. RR: 20. O2 saturation: 100%. Temp: 97.8 F. Pain level now: 710. Appearance: Alert. No acute distress. Respiratory: Breath sounds normal. Abdomen: Soft and nontender. Extremities: Left leg: moderate erythema, tenderness and swelling and 4.0 cm laceration located in the anterior, posterior, medial and lateral aspect of upper, mid and lower leg. Neurovascular intact distally. No ecchymosis. (There is no palpable abscess, not acute cellulitis. There is a general redness.). Extremities otherwise negative. PROGRESS AND PROCEDURES Course of Care: 23:31 01/09/17. Unable to log into wound center notes. Pt does not appear to have a wound emergency. Pt will need to get into the wound clinic on Thursday (2 days from now) I paged Dr Bailey Sat and Dr Lopez will relay the request for a Thursday appointment when Dr Bailey returns the page. Disposition: Discharged. Condition: stable. CLINICAL IMPRESSION Clinical picture does not suggest cellulitis or abscess. NON-HEALING LEFT LEG WOUND. INSTRUCTIONS (THERE DOES NOT APPEAR TO BE CELLULITIS OR ABSCESS AT THIS TIME. I WILL CALL DR BAILEY IN THE MORNING. CALL THE WOUND CLINIC FOR A THURSDAY APPOINTMENT. IMMEDIATE RECHECK FOR FEVER, MUCH WORSE WOUND OR UNCONTROLLED PAIN.). Understanding of the discharge instructions verbalized by patient and family. Follow-up with: [facility], , , [facility], [address] [place] [address] [address], [place] [address] Follow up Thursday. (Electronically signed by Minh Wilkes MD 01/10/2017 22:34) Addenda for CANDACE LIZA J VisitID: [id number] Date: 01/09/2017 01/10/2017 10:00 21:50. Spoke with Dr. Bailey and he will be happy to have her seen early next week at the Wound Care Clinic. (Electronically signed by Herman Lopez 01/10/2017 10:00)
--- NOTE | 2017-01-09 23:52 | ED NURSING NOTES ---
Clinical Report - Nurses [facility] [address] [place] [address] 01/09/2017 22:21 [id number] Triage time 22:30. Chief Complaint: LEFT LOWER EXTREMITY PAIN, SWELLING and REDNESS. Location of symptoms- (outer calf wound). --22:37 Deya Ann R.N. 22:30 01/09/17. BP: 106/39 (large adult cuff) taken on the left arm, while lying. HR: 89 (regular and normal rate). RR: 20 (regular and unlabored). O2 saturation: 100% on room air. Temp: 97.8 F (oral). Pain level now: 03/23. --22:37 Deya Ann R.N. Weight: 185.9 kg stated. Height/Length: 67 inches Per Patient. BMI: 64.2. --22:36 Deya Ann R.N. Medications Cyclobenzaprine HCl Oral 10 mg, 2x a day. Gabapentin Oral 800mg, 3x a day. Lasix Oral 40 mg, daily. Lisinopril Oral 40 mg, daily. Pamelor Oral 100mg, at bedtime. Percocet Oral 7.5/325 mg, as needed. PriLOSEC Oral 40 mg, 2x a day. Sertraline HCl Oral 100 mg, daily. Spironolactone Oral 25 mg, daily. --22:32 Deya Ann R.N. Clindamycin HCl Oral (Capsule 300 mg) 1 capsule, 3x a day. --22:32 Deya Ann R.N. Allergies Statins. --22:32 Deya Ann R.N. History Arrived by private vehicle. Historian: patient. Accompanied by family. Primary physician (chon). This occurred (ongoing,). She has had swelling to left lower leg since initial complaint. She has had redness. PAST MEDICAL HX: Tetanus status: up-to-date. Last normal menstrual period was 3 weeks ago. SOCIAL HX: Smoker- current status unknown. Occasional alcohol use. History of drug use: marijuana. (3 months ago). SELF HARM ASSESSMENT: A self harm assessment was performed. The patient answered "no" to the question "Have you recently felt down, depressed, or hopeless?", "Have you noticed less interest or pleasure in doing things?", "Do you have thoughts of harming or killing yourself?", "Are you here because you tried to hurt yourself?", "Have you ever tried to hurt yourself before today?", "Have you recently had thoughts about harming or killing others?" and "Do you have any dangerous items in your possession?". --22:37 Deya Ann R.N. PROBLEMS: Fibromyalgia [Active]. --22:33 Deya Ann R.N. Infections. Cellulitis. Obesity. Sleep Apnea. Asthma. Hypertension. MRSA Infection. --22:33 Deya Ann R.N. ADDITIONAL SURGERIES: Carpal Tunnel Surgery. Knee Surgery. Nose. Shoulder Surgery. Wrist. --22:33 Deya Ann R.N. Interventions ID band on patient. --22:37 Deya Ann R.N. PHYSICAL ASSESSMENT To room via wheelchair. GENERAL / NEURO / PSYCH: Oriented X 4. Alert. Appears in no acute distress. EXTREMITIES: Left leg: tenderness and erythema of the lateral aspect of leg (wound since beginning of november). SKIN: Skin breakdown noted on left calf; present on arrival. --22:39 Deya Ann R.N. NURSING PROGRESS NOTES Two patient identifiers checked. Call light placed in reach. Side rails up x 1. Bed placed in lowest position. Brakes of bed on. --22:39 Deya Ann R.N. Patient ready for evaluation- chart flagged. --22:39 Deya Ann R.N. 23:04 01/09/2017 Site #1 started via IV in the left hand with an 22g angiocath, with aseptic technique and good blood return; one attempt. Blood drawn: rainbow set. Labeled in the presence of the patient. Saline lock flushed with 10 mL saline. --23:09 Deya Ann R.N. Two patient identifiers checked. Call light placed in reach. Side rails up x 1. Bed placed in lowest position. Brakes of bed on. --23:09 Deya Ann R.N. DISPOSITION / DISCHARGE 23:55 01/09/2017 Site #1 removed upon discharge. Catheter intact. Manual pressure and bandage applied. --00:06 Deya Ann R.N. Departure time: 2355. Condition at departure: unchanged and stable. No learning barriers present. Discharge instructions provided and reviewed with the patient. Follow up contact number [phone]. Patient verbalized understanding. Written instructions provided in [place]. The patient was discharged home and accompanied by family. She left the Emergency Department in a wheelchair and via private vehicle. Family member driving. --00:10 Deya Ann R.N. 23:55 01/09/17. BP: 85/35 (regular adult cuff) taken on the left arm, while lying. ED physician notified. HR: 75 (regular, normal rate and strong). RR: 18 (regular, unlabored and normal). O2 saturation: 100% on room air. Temp: deferred. Pain level now: 11/21. --00:10 Deya Ann R.N. Locked/Released at 01/10/2017 0:11 by Deya Ann R.N.
--- NOTE | 2017-01-09 23:52 | ED CLINICAL REPORT ---
Clinical Report - Physicians/Mid Levels [facility] [address], [place] [address] 01/09/2017 22:21 Patient: LIZA MARIA Time Seen: 22:47. Arrived- By private vehicle. Historian- patient. HISTORY OF PRESENT ILLNESS Chief Complaint: ; ;(LLE WOUND IS "WORSE"). The quality is noted to be "pain". This started several days ago; Today the patient was told to come to the ED by her home health wound care nurse because there was a foul odor when the nurse removed the wound vac. The patient noted increased tenderness over the last several days. Symptoms located in the area of the left leg. The patient has had redness and swelling. No difficulty walking. No bladder dysfunction, bowel dysfunction, sensory loss or motor loss. Recent medical care: ( IMPRESSION: 1. Left lower extremity: No evidence of resting arterial insufficiency. External iliac artery monophasic wave form with elevated velocity suggestive of inflow disease. Otherwise minimal plaque formation. 2. Right lower extremity: No evidence of resting arterial insufficiency . Minimal plaque formation with no evidence of high-grade stenosis. Dictated by: OLAF ALCANTARA MD D: YESENIA;01/05/17 1538 <Electronically signed by OLAF ALCANTARA MD in OV>). REVIEW OF SYSTEMS No chills, fever, chest pain or difficulty breathing. PAST HISTORY ( Wound Care Center [facility] Pt has a chronic non healing LLE wound Morbid obesity >400 lbs PROBLEMS: Fibromyalgia [Active]. Infections. Cellulitis. Obesity. Sleep Apnea. Asthma. Hypertension. MRSA Infection. ADDITIONAL SURGERIES: Carpal Tunnel Surgery. Knee Surgery. Nose. Shoulder Surgery. Wrist). SOCIAL HISTORY Former smoker. ADDITIONAL NOTES The nursing notes have been reviewed. PHYSICAL EXAM Vital Signs: 01/09/2017 23:55 BP: 85/35. HR: 75. RR: 18. O2 saturation: 100%. Pain level now: 11/21. 01/09/2017 22:30 BP: 106/39. HR: 89. RR: 20. O2 saturation: 100%. Temp: 97.8 F. Pain level now: 710. Appearance: Alert. No acute distress. Respiratory: Breath sounds normal. Abdomen: Soft and nontender. Extremities: Left leg: moderate erythema, tenderness and swelling and 4.0 cm laceration located in the anterior, posterior, medial and lateral aspect of upper, mid and lower leg. Neurovascular intact distally. No ecchymosis. (There is no palpable abscess, not acute cellulitis. There is a general redness.). Extremities otherwise negative. PROGRESS AND PROCEDURES Course of Care: 23:31 01/09/17. Unable to log into wound center notes. Pt does not appear to have a wound emergency. Pt will need to get into the wound clinic on Thursday (2 days from now) I paged Dr Bailey Sat and Dr Lopez will relay the request for a Thursday appointment when Dr Bailey returns the page. Disposition: Discharged. Condition: stable. CLINICAL IMPRESSION Clinical picture does not suggest cellulitis or abscess. NON-HEALING LEFT LEG WOUND. INSTRUCTIONS (THERE DOES NOT APPEAR TO BE CELLULITIS OR ABSCESS AT THIS TIME. I WILL CALL DR BAILEY IN THE MORNING. CALL THE WOUND CLINIC FOR A THURSDAY APPOINTMENT. IMMEDIATE RECHECK FOR FEVER, MUCH WORSE WOUND OR UNCONTROLLED PAIN.). Understanding of the discharge instructions verbalized by patient and family. Follow-up with: [facility], , , [facility], [address] [place] [address] [address], [place] [address] Follow up Thursday. (Electronically signed by Minh Wilkes MD 01/10/2017 22:34) Addenda for CANDACE LIZA J VisitID: [id number] Date: 01/09/2017 01/10/2017 10:00 21:50. Spoke with Dr. Bailey and he will be happy to have her seen early next week at the Wound Care Clinic. (Electronically signed by Herman Lopez 01/10/2017 10:00)
--- NOTE | 2017-01-10 22:34 | ED MED RECONCILIATION SUMMARY ---
Patient: LIZA MARIA Medication Reconciliation Report [facility] VisitID: [id number] [address] [place] [address] 46y, F Registration Date/Time: 01/09/2017 Weight: 185.9 kg Height/Length: 67 in. BMI: 64.2 ALLERGIES: Statins The patient's Home Medications are listed below: THE FOLLOWING MEDICATIONS NEED TO BE RECONCILED: Clindamycin HCl Oral (300 mg) 1 capsule, 3x a day Cyclobenzaprine HCl Oral 10 mg, 2x a day Gabapentin Oral 800mg, 3x a day Lasix Oral 40 mg, daily Lisinopril Oral 40 mg, daily Pamelor Oral 100mg, at bedtime Percocet Oral 7.5/325 mg PriLOSEC Oral 40 mg, 2x a day Sertraline HCl Oral 100 mg, daily Spironolactone Oral 25 mg, daily The source(s) of the original Home Medication information: Not obtained. The following Medications were given to the patient in the Emergency Department: None. The following Medications were prescribed to the patient: None.
--- NOTE | 2017-01-10 22:34 | ED MED RECONCILIATION SUMMARY ---
Patient: LIZA MARIA Medication Reconciliation Report [facility] VisitID: [id number] [address] [place] [address] 46y, F Registration Date/Time: 01/09/2017 Weight: 185.9 kg Height/Length: 67 in. BMI: 64.2 ALLERGIES: Statins The patient's Home Medications are listed below: THE FOLLOWING MEDICATIONS NEED TO BE RECONCILED: Clindamycin HCl Oral (300 mg) 1 capsule, 3x a day Cyclobenzaprine HCl Oral 10 mg, 2x a day Gabapentin Oral 800mg, 3x a day Lasix Oral 40 mg, daily Lisinopril Oral 40 mg, daily Pamelor Oral 100mg, at bedtime Percocet Oral 7.5/325 mg PriLOSEC Oral 40 mg, 2x a day Sertraline HCl Oral 100 mg, daily Spironolactone Oral 25 mg, daily The source(s) of the original Home Medication information: Not obtained. The following Medications were given to the patient in the Emergency Department: None. The following Medications were prescribed to the patient: None.
--- NOTE | 2017-01-10 22:34 | ED MAR SUMMARY ---
..... Medication Administration Record [facility] [address] [place] [id number] Patient: LIZA MARIA Visit ID: [id number] 46y, F Weight: 185.9 kg Height/Length: 67 in BMI: 64.2 ALLERGIES: Statins
--- NOTE | 2017-01-10 22:34 | ED DISCHARGE INSTRUCTIONS ---
Patient: LIZA MARIA General Instructions [facility] VisitID: [id number] [address] [place] [address] 46y, F Registration Date/Time: 01/09/2017 NON-HEALING LEFT LEG WOUND. INSTRUCTIONS (THERE DOES NOT APPEAR TO BE CELLULITIS OR ABSCESS AT THIS TIME. I WILL CALL DR CARIAS IN THE MORNING. CALL THE WOUND CLINIC FOR A THURSDAY APPOINTMENT. IMMEDIATE RECHECK FOR FEVER, MUCH WORSE WOUND OR UNCONTROLLED PAIN.). Understanding of the discharge instructions verbalized by patient and family. Follow-up with: [facility], , , [facility], [address] [place] [address] [address], [place], [address] Follow up Thursday. (Electronically signed by Minh Wilkes MD 01/10/2017 22:34)
--- NOTE | 2017-01-10 22:34 | ED DISCHARGE INSTRUCTIONS ---
Patient: LIZA MARIA General Instructions [facility] VisitID: [id number] [address] [place] [place] [address] 46y, F Registration Date/Time: 01/09/2017 NON-HEALING LEFT LEG WOUND. INSTRUCTIONS (THERE DOES NOT APPEAR TO BE CELLULITIS OR ABSCESS AT THIS TIME. I WILL CALL DR CARIAS IN THE MORNING. CALL THE WOUND CLINIC FOR A THURSDAY APPOINTMENT. IMMEDIATE RECHECK FOR FEVER, MUCH WORSE WOUND OR UNCONTROLLED PAIN.). Understanding of the discharge instructions verbalized by patient and family. Follow-up with: [facility], , , [facility], [address] [place] [address] [address], [place], [address] Follow up Thursday. (Electronically signed by Minh Wilkes MD 01/10/2017 22:34)
--- NOTE | 2017-01-10 22:34 | ED MAR SUMMARY ---
..... Medication Administration Record [facility] [address] [place], [place] [id number] Patient: LIZA MARIA Visit ID: [id number] 46y, F Weight: 185.9 kg Height/Length: 67 in BMI: 64.2 ALLERGIES: Statins
== END 2017-01-09 23:55 | disposition home or self-care (01) ==
LOC: ED SRH 22:21
DX: L97.929 Non-pressure chronic ulcer of unspecified part of left lower leg with unspecified severity (principal); I10 Essential (primary) hypertension; Z79.899 Other long term (current) drug therapy; Z87.891 Personal history of nicotine dependence; Z88.9 Allergy status to unspecified drugs, medicaments and biological substances

== ENCOUNTER 2017-02-17 15:06 | Outpatient (CLI) | payer OTHER ==
--- NOTE | 2017-02-17 17:48 | DIAGNOSTIC IMAGING REPORT ---
PROCEDURE: CT LTD LOWER EXT W/CONT- LEFT INDICATION: CELLULITIS TECHNIQUE: 145 ml Isovue 370 IV and axial images were obtained through the left calf. Coronal and sagittal re-formations obtained. COMPARISON: Left tibia-fibula x-ray 06/08/2016. FINDINGS: There is a mid calf cutaneous wound laterally with extensive subcutaneous edema stretching from the upper calf to the ankle, most prominent in the mid calf. There is no evidence of abscess or focal fluid collection. Normal underlying musculature. Bones are unremarkable. IMPRESSION: 1. Lateral left mid calf cutaneous wound with cellulitis but no evidence of an abscess
== END 2017-02-17 23:00 ==
LOC: LAB SRH 15:06 → CT SRH 15:06
DX: L03.116 Cellulitis of left lower limb (principal)